=== PATIENT | male | born 1995 | race Asian ===

== ENCOUNTER 2017-09-14 09:25 | Emergency (ER) | payer OTHER ==
[~2017-09-14] VITALS: Ht 180.3 cm; Wt 76.2 kg
[2017-09-14 09:26] VITALS: Ht 180.3 cm; Wt 76.2 kg
[2017-09-14] MEDS ORDERED: ONDANSETRON INJ 2 MG/ML 2 ML VIAL IV STA (09:53)
[2017-09-14] MEDS ORDERED: MoRPHine SULFATE 4 MG/ML 1 ML CARP\\VIAL IV STA (09:53)
[2017-09-14] MEDS ORDERED: DEXAMETHASONE SOD INJ 4 MG/ML VIAL IV STA (09:53)
[2017-09-14] MEDS ORDERED: LORAZEPAM 2 MG/ML 1 ML VIAL IV STA (09:53)
[2017-09-14] MEDS ORDERED: HYDR-5688 PO (11:30)
[2017-09-14] MEDS ORDERED: CYCL10TA6 PO (11:30)
[2017-09-14 12:21] VITALS: BP 133/83; PULSE 65; TEMP 36.7; O2SAT 98
--- NOTE | 2017-09-16 08:11 | EMERGENCY ROOM VISIT NOTE ---
ED Visit Note First contact with patient: 09:34 Chief Complaint: Neck pain. History of Present Illness: Mr. Griffith is a 22-year-old male who ambulates into the ED complaining of left-sided neck pain. Patient reports he was feeling well over the last few days. He denies any recent trauma or previous significant injuries or surgeries to the neck. He reports he woke from sleep approximately one and a half hours ago and was experiencing neck pain and stiffness. Over the last 1.5 hours to pain has gradually progressed where he feels like he can't move his neck. He places his discomfort over the left trapezius muscle. He describes his pain as a spasm- like sensation. He rates his discomfort 8/10. All movements of the cervical spine increases his discomfort. He has not identified any alleviating factors related to the pain. He has not taken any medications for his pain. He denies any associated symptoms including fevers, chills, sweats, skin eruptions, skin color changes, headache, dizziness, lightheadedness, abnormal neurological symptoms, recent upper respiratory tract symptoms, sinus congestion, sore throat , chest pain, cough, wheezing, shortness of breath, upper extremity weakness/ numbness/tingling. Review of Systems: As noted above in history of present illness. All body systems were reviewed and found to be negative as noted above. Past Medical History: Patient denies. Current Medications: Patient denies. Allergies to Medications: Patient denies. Social History: Patient is currently University student; he feels safe in his home environment; he denies tobacco and alcohol use. Physical Examination: Vital Signs: Date Time Temp Pulse Resp B/P (MAP) Pulse Ox O2 Delivery O2 Flow Rate FiO2 09/14/17 12:21 65 20 133/83 98 09/14/17 12:21 36.7 65 20 133/83 98 Room Air 09/14/17 11:14 63 09/14/17 11:10 61 18 134/68 98 Room Air 09/14/17 09:26 36.7 65 18 141/92 99 Room Air GENERAL: 22-year-old male in moderate distress due to pain, nontoxic-appearing, afebrile and hemodynamically stable. NEUROLOGICAL: Awake, alert and oriented to person, place and time. Answering questions appropriately and following commands. Normal gait. Good hand eye coordination. No focal motor or sensory deficits. Cranial nerves II through XII grossly intact. SKIN: Warm, dry and pink. No soft tissue eruptions or trauma noted. HEENT: Atraumatic and normocephalic. PERRLA. Sclera white and conjunctiva pink. No drainage from naris. Oral cavity moist and pink. Pharynx is nonerythematous or edematous. Speech normal. No lymphadenopathy. Trachea midline. No jugular venous distention. BACK: No tenderness over the bony cervical and spine. Mild tenderness with spasm in the left trapezius muscle. On my initial evaluation patient refused to do range of motion testing of the cervical spine due to pain. After medication he had slight improvement in all movements of the cervical spine but they were still markedly decreased. No CVA tenderness. THORAX: Lungs sounds are clear to auscultation and equal bilaterally with symmetrical chest wall. UPPER EXTREMITIES: Gross bony deformity. No tenderness through the joints. With the neck stabilized full range of motion of the shoulder and elbow against resistance. 5/5 muscle strength in all movements of the shoulder, elbow, forearm and wrist. 2+ bicipital, tricipital and brachial radialis deep tendon reflexes are intact. He was able to distinguish light sensations through all dermatomes of the arms and hands. Distal pulses are intact and equal bilaterally. Capillary refill is brisk. ED Course: Patient is assessed as noted above. Patient's medication list was reviewed. An IV was initiated and patient was given 4 mg of morphine IV, 4 mg of Zofran IV , 0.5 mg of Ativan IV and 8 mg of Decadron IV. Patient was monitored for approximately 2 hours and had no adverse reactions to his medications. Patient was reassessed and subjectively reported he was feeling much better. Patient was placed in a soft cervical collar. Patient was educated about today's findings and instructed on his treatment plan ; he verbalized understanding and agreement with this plan. Clinical Impression: Torticollis. Decision-Making: Initially my differential diagnosis I considered fracture, subluxation, muscle spasm, torticollis, meningitis and other causes. Disposition: Patient discharged home in stable condition; prior to departure he was reassessed and subjectively reported he was feeling much better and rated his discomfort 4/10. Plan: Patient was placed on a sliding pain medication scale of ibuprofen, acetaminophen and [place]; his name was checked in the state database and no red flags were noted and he was given appropriate narcotic precautions. Patient was prescribed Flexeril 10 mg every 8 hours for muscle spasm. Ice and heat therapy were discussed with the patient. Patient was encouraged use a cervical collar for the next few days but not while eating, sleeping or bathing; he was encouraged to come out of the collar every couple hours and do simple range of motion exercises within the level of this pain. Patient is encouraged to follow-up at [facility] for recheck in 2-3 days. Patient was encouraged return ED for worsening/uncontrolled pain, uncontrolled spasms, fevers, vomiting, headaches or any new/concerning symptoms.
== END 2017-09-14 12:22 | disposition home or self-care (01) ==
LOC: EDBD 09:26 → C.EDB 09:26 → C.EDD 12:22
DX: M43.6 Torticollis (principal)